=== PATIENT | female | born 1970 | race Two or more races ===

== ENCOUNTER 2019-07-29 11:48 | Outpatient (CLI) | payer OTHER ==
[2019-07-29] MEDS ORDERED: PRILOSEC OTC20 MG PO (16:27)
[2019-07-29] MEDS ORDERED: TESSALON PERLE100 M1 PO (16:28)
[2019-07-29] MEDS ORDERED: ZANTAC150 MG PO (16:28)
== END 2019-07-29 16:44 | disposition home or self-care (01) ==
LOC: OFIC 805 11:48
DX: K21.0 Gastro-esophageal reflux disease with esophagitis (principal); R07.0 Pain in throat; F45.8 Other somatoform disorders